=== PATIENT | female | born 1970 | race Asian ===

== ENCOUNTER 2020-04-30 07:39 | Outpatient (CLI) | payer OTHER, SELFPAY | END 2020-04-30 07:40 | disposition home or self-care (01) | LOC: ANHAUDIO 07:40 | PROVIDERS: PCP Nurse Practitioner; Visit Provider Otolaryngology | DX: H72.92 Unspecified perforation of tympanic membrane, left ear (principal); H66.92 Otitis media, unspecified, left ear; H72.91 Unspecified perforation of tympanic membrane, right ear; H90.6 Mixed conductive and sensorineural hearing loss, bilateral | CPT/HCPCS: 92557; 92567 ==

== ENCOUNTER 2020-05-26 01:19 | Outpatient (CLI) | payer OTHER, SELFPAY ==
[2020-05-26 20:15] LABS: SARS-CoV-2 RNA PCR Negative
== END 2020-05-26 01:20 | disposition home or self-care (01) ==
LOC: ANHCOVIDDT 01:19
PROVIDERS: PCP Nurse Practitioner; Visit Provider Otolaryngology
DX: Z01.818 Encounter for other preprocedural examination (principal); Z20.828 Contact with and (suspected) exposure to other viral communicable diseases
CPT/HCPCS: 87635; C9803; U0003

== ENCOUNTER 2020-05-29 01:46 | Day surgery (SDC) | payer OTHER, SELFPAY ==
[2020-05-22 10:10] VITALS: BMI 26.3
--- NOTE | 2020-05-28 10:22 | WPDANESEPPF ---
Anes - Initial Pre Proc Eval Procedure: Operation Date: 05/29/20 11:30 Proposed Procedures p Left Tympanoplasty - Sea Ross MD Date/Time: 05/28/20 10:22 Surgeon: Sea Ross MD Pre Op Diagnosis: Left TM Perforation Patient Data Age: 50 Gender: F Height: 1.63 m Weight: 69.5 kg Allergies Allergy/AdvReac Type Severity Reaction Status Date / Time No Known Allergies Allergy Unknown Verified 05/22/20 10:02 Home Medications Medication Instructions Recorded Confirmed Type adalimumab 10 mg/0.1 mL See Rx Instructions SUBCUT .COMPLEX 04/24/20 05/22/20 History subcutaneous syringe kit methotrexate sodium 2.5 mg tablet 2.5 mg PO WEEKLY 04/24/20 05/22/20 History Patient hx anesthesia problems: none Family hx anesthesia problems: none PMFSH Past Medical History Medical History (Updated 05/29/20 @ 10:45 by Ryder Ackerman DO) Blind Pre-diabetes Psoriasis Surgical History Surgical History (Updated 05/28/20 @ 10:22 by Ryder Ackerman DO) History of x2 History of eye surgery Social History Social History (Updated 04/24/20 @ 11:06 by Dawna Pedroza MA) Smoking status: Never smoker Alcohol intake: never Substance use: never Living arrangements: with family Spiritual care concerns: No Anes - Eval Final PreProcedure Day of Procedure 05/28/20 10:22 Patient weight: overweight Heart: regular rate and rhythm Lungs: clear to auscultation and normal air movement Airway: Mallampati scale class IV Neurological: alert and oriented Last oral intake: >/= 8 hours ASA classification: III Emergent: no Anesthetic plan: proceed Anesthesia type and monitoring: general LMA and standard monitoring Informed Consent: The patient's anesthetic plan and its attendant risks and benefits were discussed with the patient/family/POA. Questions were solicited and answers provided to the satisfaction of the patient/family/POA.
[2020-05-29] VITALS (9 sets, daily range): BP systolic 123–157; BP diastolic 75–97; PULSE 67–113; RESP 12–20; TEMP 36.1–36.3; O2SAT 97–100
--- NOTE | 2020-05-29 06:15 | PM.HPGS ---
History of Present Illness History of Present Illness Consent: Risks, benefits, and alternatives have been discussed and questions answered. Patient agrees to proceed with procedure. Chief complaint: Left TM Perforation Narrative: Hemalatha Galvan is a 50 year old female has bilateral tympanic membrane perforations is going to have a left tympanoplasty Review of Systems Review of Systems: All systems reviewed & are unremarkable except as noted in HPI and below PMFSH Past Medical History Medical History (Updated 05/28/20 @ 10:22 by Ryder Ackerman DO) Psoriasis Surgical History Surgical History (Updated 05/28/20 @ 10:22 by Ryder Ackerman DO) History of x2 History of eye surgery Social History Social History (Updated 04/24/20 @ 11:06 by Dawna Pedroza MA) Smoking status: Never smoker Alcohol intake: never Substance use: never Living arrangements: with family Spiritual care concerns: No Meds Home Medications and Allergies Home Medications Medication Instructions Recorded Confirmed Type adalimumab 10 mg/0.1 mL See Rx Instructions SUBCUT .COMPLEX 04/24/20 05/22/20 History subcutaneous syringe kit methotrexate sodium 2.5 mg tablet 2.5 mg PO WEEKLY 04/24/20 05/22/20 History Allergies Allergy/AdvReac Type Severity Reaction Status Date / Time No Known Allergies Allergy Unknown Verified 05/22/20 10:02 Assessment and Plan Additional Plan Plan is a left tympanoplasty
--- NOTE | 2020-05-29 06:16 | WPDHPUPDATE1 ---
History and Physical Update Update Date/Time: 05/29/20 06:16 History and Physical has been reviewed, including an updated exam of the patient. There are NO changes in the patient's condition. Risks, benefits, and alternatives have been discussed and questions answered. Patient agrees to proceed with procedure.
[2020-05-29] MEDS: LACTATED RINGERS 1,000 ML 30 ML IV CONT ×2 (10:45→12:36)
[2020-05-29 10:57] LABS: Glucose Point of Care 97 (65-105)
[2020-05-29] MEDS: ACETAMINOPHEN 500 MG TABLET 1000 MG PO (11:08)
[2020-05-29] MEDS: LIDO 1%/EPINEPHRINE 1:100,000 20 ML VIAL 5 ML INFILTRATE (12:17)
[2020-05-29] MEDS: NEOMYCIN/POLYMYXIN B/PRAMOXINE 15 GM CREAM 1 APPLIC TOPICAL (12:17)
[2020-05-29] MEDS: CIPROFLOXACIN HCL 0.3% OP SOLN 2.5 ML BTL 4 DROP EACH EAR (12:22)
--- NOTE | 2020-05-29 12:37 | PM.PROC ---
Procedure Note - Detailed Date of procedure: 05/29/20 Pre-op diagnosis: Left TM Perforation Post-op diagnosis: same Procedure performed: Left tympanoplasty Description of procedure: Patient prepped and draped, the ear was inspected inspection revealed a [] perforation. The vascular strip was injected with xylocaine with adrenaline. Postauricular region was injected with xylocaine with adrenaline and incision was made and temporalis Parres fascia graft harvested closed with Monocryl and glue consent and the bed of the fascia graft was crushed and dried the ear was inspected edges of the perforation strip of squame with a small straight pick. The graft placed in an underlay fashion after packing the middle ear with Surgicel. The patient awakened returned to recovery in good condition Anesthesia: GLMA Surgeon: eSa Ross MD Estimated blood loss (mL): 0 Drains: No Packing: No Pathology: none sent Complications: No immediate complications Condition: stable Disposition: PACU Findings: Tympanic membrane perforation
--- NOTE | 2020-05-29 13:07 | SUR.PHASEI ---
1300 - dr. cuenca at bedside
--- NOTE | 2020-05-29 14:09 | SUR.PHASEII ---
1400- repeat glucose 88 pt tolerated po fluids well.
--- NOTE | 2020-05-29 14:11 | SUR.PHASEII ---
1400- previous note regarding blood glucose was inadvertantly charted on wrong pt.
== END 2020-05-29 14:50 | disposition home or self-care (01) ==
PROVIDERS: PCP Nurse Practitioner; Visit Provider Otolaryngology
PROC: (CPT 69631; principal; 2020-05-29 11:30)
DX: H72.92 Unspecified perforation of tympanic membrane, left ear (principal); R73.03 Prediabetes; L40.9 Psoriasis, unspecified; H54.7 Unspecified visual loss
CPT/HCPCS: 69631; 15769; A9270; J0171; J1100; J2250; J2405; J2704; J3010; J7120

== ENCOUNTER 2021-07-25 07:54 | Outpatient (CLI) | payer OTHER, SELFPAY | END 2021-07-25 07:55 | disposition home or self-care (01) | LOC: ANHAUDIO 07:57 | PROVIDERS: PCP Nurse Practitioner; Visit Provider Otolaryngology | DX: H72.93 Unspecified perforation of tympanic membrane, bilateral (principal) | CPT/HCPCS: 92557; 92567 ==

== ENCOUNTER 2023-01-26 02:56 | Day surgery (SDC) | payer OTHER, SELFPAY ==
--- NOTE | 2023-01-15 16:15 | SUR.PREOP ---
Addendum entered by Oanh Marcus RN 01/21/23 11:12: Pt and here to sign OR consents. 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 Pt speaks and understands Jordanian. Original Note: Report to the Outpatient Waiting Room, entrance under the green pavilion located off [facility], at time 0615 on date 01/26/23. Planned Procedure Time: 0815. Time changes happen often and if your time is changed the preop area will call you the afternoon before. - You and your visitor will be asked to self-screen and do not enter if you have any COVID symptoms. - A mask is optional within the hospital at this time. Patients may have clear liquids (water, carbonated beverages, clear teas, apple juice) until 3 hours prior to surgery with a maximum of 20 ounces. - NO CLEAR LIQUIDS AFTER 0515 - No food from midnight until time of surgery - Infants may have breast milk until 4 hours before surgery, infant formula 6 hours prior to surgery. - Children will be allowed to drink immediately following surgery. If applicable, please bring a bottle or sippy cup to assist with drinking. Juice, water, soda, and popsicles are readily available. For infants on formula, please bring formula the day of surgery. Pacifiers are allowed. Take the following medications with a SIP of water the morning of surgery: N/A DO NOT STOP ANY OF YOUR OTHER PRESCRIPTION MEDICATIONS PRIOR TO SURGERY ?EXCEPT THE FOLLOWING Medications to discontinue per physician N/A Date to take last dose Please no make-up, nail sami, hairspray, perfume, deodorant, or body powder the day of surgery. No jewelry (including any body piercings) or valuables the day of surgery, leave them at home. Please take a shower or bath the night before, or the morning of, surgery with an antibacterial soap. Wear comfortable, loose fitting clothing. Children are encouraged to wear pajamas. - Jewelry must be removed prior to entering the operating room. Rings and piercings that are not removed may be cut off. - The hospital will not accept responsibility for valuables. - Please leave all valuables, including medications, at home the day of surgery. If you are going home after surgery, a licensed double bottom driver must drive you home. - NO public transportation without another adult if you receive anesthesia. - We recommend that an adult stay with you for 24 hours following discharge. - We also recommend that you do not drive, make important decision, drink alcoholic beverages, or take any drugs that were not prescribed by your health care provider for at least 24 hours after your discharge time. For Pediatric surgeries, we recommend two adults accompany the child home. Follow any additional instructions given to you from your surgeon. If you or anyone in your household have experienced Covid symptoms in the past week, please notify your surgeon or the nurse liaison at the phone number below for possible testing. Telephone instructions given to RASHIDA/SPOUSE and asked if any additional questions and then verbalized understanding. Patient advised to call surgeon office or pre surgery nurse liaison [phone] if any additional questions.
[2023-01-15 16:29] VITALS: BMI 24.5
[2023-01-26] MEDS: LACTATED RINGERS 1,000 ML 30 ML IV CONT (07:00)
--- NOTE | 2023-01-26 07:22 | WPDHPUPDATE1 ---
History and Physical Update Update Date/Time: 01/26/23 07:22 History and Physical has been reviewed, including an updated exam of the patient. There are NO changes in the patient's condition. Risks, benefits, and alternatives have been discussed and questions answered. Patient agrees to proceed with procedure.
--- NOTE | 2023-01-26 07:22 | PM.HPGS ---
History of Present Illness History of Present Illness Consent: Risks, benefits, and alternatives have been discussed and questions answered. Patient agrees to proceed with procedure. Chief complaint: Missing IUD Strings Narrative: Hemalatha Galvan is a 52 year old female with missing IUD strings. Patient was unable to tolerate attempts at removal in the office. Was recommended to proceed with hysteroscopic removal of IUD in the operating room. Risks of infection, bleeding, perforation, and possible findings are reviewedand the patient agrees to proceed. 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% Hearing loss Pre-diabetes Psoriasis Surgical History Surgical History (Updated 01/26/23 @ 07:26 by Nahomy Boo MD) History of x2 History of eye surgery retinal detachment Social History Social History Smoking status: Never smoker Substance use: never Living arrangements: with family Spiritual care concerns: No Meds Home Medications and Allergies Home Medications Medication Instructions Recorded Confirmed Type adalimumab 10 mg/0.1 mL See Rx Instructions subcut .COMPLEX 04/24/20 01/15/23 History subcutaneous syringe kit (Humira(CF)) methotrexate sodium 2.5 mg tablet 2.5 mg PO WEEKLY 04/24/20 01/15/23 History dorzolamide 22.3 mg-timolol 6.8 1 drp LEFT EYE DAILY 01/15/23 01/15/23 History mg/mL eye drops folic acid 1 mg tablet 1 mg PO DAILY 01/15/23 01/15/23 History prednisolone acetate 1 % eye 1 drp LEFT EYE BID 01/15/23 01/15/23 History drops,suspension Allergies Allergy/AdvReac Type Severity Reaction Status Date / Time No Known Allergies Allergy Unknown Verified 01/15/23 16:26 Exam Const: General: healthy appearing and alert Orientation/consciousness: patient oriented x3 Resp: Effort & Inspection: normal respiratory effort GI: GI Palp: Yes Soft to palpation, No Tenderness to palpation present (GI) and No Palpable mass present : External Female Exam: normal external appearance Speculum Exam - Vagina: normal appearance of the vagina and normal vaginal discharge Speculum Exam - Cervix: normal appearance of the cervix Bimanual exam- vagina & uterus: uterine size normal and consistency normal Bimanual Exam- Adnexa, other: normal adnexae and No adnexal tenderness Neuro: General: patient oriented x3 Assessment and Plan Assessment and plan (1) IUD strings lost: Code(s): T83.32XA - Displacement of intrauterine contraceptive device, initial encounter Status: Acute Assessment and Plan: plan to proceed with hysteroscopic removal of IUD
[2023-01-26 07:30] VITALS: BP 155/88; PULSE 60; RESP 16; TEMP 36; O2SAT 100
[2023-01-26] MEDS: ACETAMINOPHEN 500 MG TABLET 1000 MG PO (07:35)
--- NOTE | 2023-01-26 08:02 | P.PNAN_ITS ---
Anes - Initial Pre Proc Eval Procedure: Operation Date: 01/26/23 08:15 Proposed Procedures p Hysteroscopy with Intrauterine Device Removal - Nahomy Boo MD Date/Time: 01/26/23 08:02 Surgeon: Nahomy Boo MD Pre Op Diagnosis: Missing IUD Strings Patient Data Age: 52 Gender: F Height: 1.65 m Weight: 67 kg Allergies Allergy/AdvReac Type Severity Reaction Status Date / Time No Known Allergies Allergy Unknown Verified 01/15/23 16:26 Home Medications Medication Instructions Recorded Confirmed Type adalimumab 10 mg/0.1 mL See Rx Instructions subcut .COMPLEX 04/24/20 01/15/23 History subcutaneous syringe kit (Humira(CF)) methotrexate sodium 2.5 mg tablet 2.5 mg PO WEEKLY 04/24/20 01/15/23 History dorzolamide 22.3 mg-timolol 6.8 1 drp LEFT EYE DAILY 01/15/23 01/15/23 History mg/mL eye drops folic acid 1 mg tablet 1 mg PO DAILY 01/15/23 01/15/23 History prednisolone acetate 1 % eye 1 drp LEFT EYE BID 01/15/23 01/15/23 History drops,suspension Patient hx anesthesia problems: none Family hx anesthesia problems: none Results Review: All pre-operative results and documents have been reviewed as part of the pre- operative evaluation. 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% Hearing loss Pre-diabetes Psoriasis Surgical History Surgical History History of x2 History of eye surgery retinal detachment Social History Social History Smoking status: Never smoker Substance use: never Living arrangements: with family Spiritual care concerns: No Anes - Eval Final PreProcedure Day of Procedure 01/26/23 08:02 Patient weight: normal Heart: regular rate and rhythm Lungs: clear to auscultation Airway: Mallampati scale class II Neurological: other (alert) Last oral intake: >/= 8 hours ASA classification: II Emergent: no Anesthetic plan: proceed Anesthesia type and monitoring: general GIVS and standard monitoring Results Review: All pre-operative results and documents have been reviewed as part of the pre- operative evaluation. Informed Consent: The patient's anesthetic plan and its attendant risks and benefits were discussed with the patient/family/POA. Questions were solicited and answers provided to the satisfaction of the patient/family/POA.
--- NOTE | 2023-01-26 08:46 | W.PM.PROC2 ---
Procedure Note - Detailed Date of Procedure 01/26/23 Pre-op Diagnosis Missing IUD Strings Post-op Diagnosis Same Procedure Performed hysteroscopic removal of IUD Surgeon Nahomy Boo MD Anesthesia MAC Findings IUD strings are twirled in mass at the base of the IUD; grossly normal appearing endometrium Description of Procedure The patient is taken to the operating room and placed under anesthesia in the dorsal lithotomy position. She was prepped and draped in the usual sterile fashion. [place] speculum was placed in the vagina and the cervix grasped the anterior lip with a tenaculum. The uterus is attempted to be sounded but internal cervical stenosis is noted. The small dilators are used and the cervix is dilated to a 6 Hegar. The uterus is then sounded to 7cm. The hysteroscope is placed and the IUD strings are visible when asked for the grasper it was not in the room. Once the grasper from cystoscopy was identified and brought to the room, it was placed through the hysteroscope and the IUD strings grasped and hysteroscope and IUD removed intact. The hysteroscope was then replaced and the endometrium evaluated. No abnormalities were noted and the hysteroscope was removed. All instruments were then removed. The patient was awakened from anesthesia and taken to recovery in stable condition. Sponge, needle, and instrument counts are correct per the OR staff. Estimated Blood Loss 5 Drains No Packing No Pathology None sent ( IUD intact was discarded) Complications No immediate complications Condition Stable Disposition PACU
[2023-01-26 08:47] VITALS: BP 114/79; PULSE 59; RESP 16; O2SAT 98
[2023-01-26 09:15] VITALS: BP 140/82; PULSE 55; RESP 20
[2023-01-26 09:45] VITALS: BP 141/86; PULSE 56; RESP 20
== END 2023-01-26 10:00 | disposition home or self-care (01) ==
PROVIDERS: Visit Provider Obstetrics & Gynecology Gynecology
PROC: 0U5B8ZZ Destruction of Endometrium, Via Natural or Artificial Opening Endoscopic (ICD-10-PCS; CPT 58563; principal; 2023-01-26 08:15)
DX: T83.32XA Displacement of intrauterine contraceptive device, initial encounter (principal); Y84.8 Other medical procedures as the cause of abnormal reaction of the patient, or of later complication, without mention of misadventure at the time of the procedure; L40.9 Psoriasis, unspecified; Z79.620 Long term (current) use of immunosuppressive biologic
CPT/HCPCS: 58562; A9270; J1100; J2250; J2405; J2704; J3010; J7120